=== PATIENT | female | born 1980 | race Caucasian/White ===

== ENCOUNTER 2023-11-25 13:29 | Emergency (ER) | payer MEDICAID, OTHER ==
[~2023-11-25] VITALS: Ht 149.9 cm; Wt 76.2 kg
[2023-11-25 13:38] VITALS: BP 121/78; PULSE 78; RESP 18; TEMP 97.7; O2SAT 96
[2023-11-25] MEDS ORDERED: DICL100G32 TP (14:54)
[2023-11-25] MEDS ORDERED: NAPR-1704 PO (14:54)
[2023-11-25 15:35] VITALS: BP 134/70; PULSE 77; RESP 16; TEMP 98.3; O2SAT 99
[2023-11-25] MEDS: KETOROLAC 30 MG/ML VIAL IM ONE (15:42)
== END 2023-11-25 15:35 | disposition home or self-care (01) ==
LOC: MED 13:29
DX: M17.12 Unilateral primary osteoarthritis, left knee (principal); M76.821 Posterior tibial tendinitis, right leg; Z79.899 Other long term (current) drug therapy
CPT/HCPCS: 73562; 96372; 99283; J1885

== ENCOUNTER 2024-01-24 10:23 | Emergency (ER) | payer OTHER ==
[~2024-01-24] VITALS: Ht 170.2 cm; Wt 68.5 kg
[~2024-01-24 10:23] MED LIST: DICL100G32 TP; NAPR-1704 PO
[2024-01-24 10:45] VITALS: BP_SYST 135; BP_SYST 145; BP_DIAS 78; BP_DIAS 80; PULSE 62; PULSE 70; RESP 16; TEMP 97.4; TEMP 99.1; O2SAT 97; O2SAT 98
== END 2024-01-24 13:04 | disposition home or self-care (01) ==
LOC: MED 10:23
DX: S83.8X1A Sprain of other specified parts of right knee, initial encounter (principal); Z79.899 Other long term (current) drug therapy; X50.1XXA Overexertion from prolonged static or awkward postures, initial encounter; Y93.89 Activity, other specified; Y92.89 Other specified places as the place of occurrence of the external cause; Y99.8 Other external cause status
CPT/HCPCS: 73562; 81025; 99283; Q0092